=== PATIENT | male | born 2000 | race Caucasian/White ===

== ENCOUNTER 2022-05-16 15:17 | Outpatient (REF) | payer SELFPAY ==
--- NOTE | ~2022-05-16 | XR_ITS ---
EXAMINATION: XR MANDIBLE CLINICAL INFORMATION: Sony pain COMPARISON: None TECHNIQUE: 5 views submitted FINDINGS: Fracture of the angle of the mandible on the right. There is some lucency around the molar which the fracture line extends into. This could be a result of the fracture. Underlying abnormality cannot be excluded. XR/XR mandible <4V IMPRESSION: Fracture of the angle of the mandible on the right.
== END 2022-05-16 15:18 | disposition home or self-care (01) ==
LOC: HO.HMGCX 15:17
DX: R68.84 Jaw pain (principal)
CPT/HCPCS: 70100

== ENCOUNTER 2024-08-29 14:58 | Inpatient (IN) | payer BC, MEDICAID, SELFPAY ==
[2024-08-29 15:00] VITALS: BP 115/80; PULSE 112; RESP 16; TEMP 36; O2SAT 99; BMI 29.5
--- NOTE | 2024-08-29 15:00 | ED.PSYCH ---
HPI - Psych General Chief Complaint: Psychiatric Symptoms Stated Complaint: SI Time Seen by Provider: 08/29/24 16:21 Source: patient Mode of arrival: ambulatory Limitations: no limitations History of Present Illness ED Provider: Mode Hart HPI Narrative: 23 yold male with past medical history of depression presents to ED for suicide ideation. Patient is time patient making thoughts about hurting himself. Patient had a DUI last night and was intentionally spitting. Patient has no plan. Patient states he is suicidal due to of sister couple years ago. Patient has no plan Related Data Home Medications ?Medication ?Instructions ?Recorded ?Confirmed No Known Home Meds 08/29/24 08/29/24 Allergies Allergy/AdvReac Type Severity Reaction Status Date / Time No Known Allergies Allergy Verified 08/29/24 15:12 Review of Systems Review of Systems: Suicide ideation Yes all other systems are reviewed and are negative [facility] Past Medical History Medical History Mandibular pain Social History Social History Alcohol intake: current Alcohol intake frequency: 3 or more drinks per day Patient Tobacco Use Status: Current everyday Tobacco user Smoked in Last 30 Days: Yes Use of substances other than those prescribed or required for medical reasons: No Advance Directives: No Advance Directives Information Provided: No Physical Exam Vital Signs: Vital Signs: Last Vital Signs Temp 96.8 F 08/29/24 15:00 Pulse 112 H 08/29/24 15:00 Resp 16 08/29/24 15:00 BP 115/80 08/29/24 15:00 Pulse Ox 99 08/29/24 15:00 O2 Del Method Room Air 08/29/24 15:00 BMI result Body Mass Index 29.5 Const: General: cooperative, healthy appearing, comfortable, no acute distress, well developed, alert, awake and Physically active Orientation/consciousness: patient oriented x3 HEENT: Head: Yes normal to inspection, Yes No palpable skull fracture present, Yes normocephalic and Yes atraumatic Eyes: General: appearance normal, both eyes and all related structures Neck: Neck: Yes normal visual inspection, Yes full ROM, Yes no lymphadenopathy, Yes no meningeal signs, Yes trachea midline, Yes supple, No anterior neck swelling and No tender Chest: Chest palpation & inspection: normal inspection of the chest and normal palpation of entire chest wall Resp: Effort & Inspection: normal respiratory effort and able to speak in complete sentences Auscultation: clear to auscultation bilaterally Cardio: Jugular venous distension: no JVD Heart sounds: S1 normal heart sound present and S2 normal heart sound present GI: Inspection: Yes normal to inspection Palpation (GI): Soft to palpation, not firm, nontender, no guarding and not rigid : General: No CVA tenderness and Yes no CVA tenderness Back/Spine/Pelvis: Back: no CVA tenderness, No CVA tenderness and No back tenderness Skin: General skin exam: no rashes or lesions noted, elasticity normal and turgor normal Neuro: General: patient oriented x3, gait normal, tone normal, moves all extremities, Normal light touch and pain sensation, no meningeal signs, no focal motor deficits, CN's II-XI intact bilaterally and normal sensation to monofilament Extrem: Other: Bilateral lower extremity tattoos negative for signs of infection. Negative for erythema, ecchymosis, crepitus, deformity, pus discharge, foul odor, warmth, or tenderness. All extremities normal. Motor/neuro/vascular exam intact. General: Yes normal to inspection, Yes full ROM and Yes capillary refill normal Psych: Appearance: grossly normal, well kempt and not disheveled Course Course Course Narrative: This is a rapid medical exam. Deferred additional HPI, ROS, PE to primary provider. 23 yo male with no known medical history here with complaints of suicidal thoughts, alcohol use. No HI, no drug use. Got an OUI last evening per family member. Patient states going fast for a reason. Will obtain labs, GARZA, CARE team consult. ILANA Delgado APRN Medical Decision Making Medical Decision Making MDM Narrative: 23-year-old male presents to ED for suicidal ideation with no plan due to depression over sister's who years ago. Will do labs care team consult 12:09am; Care team internal control consultant Court states patient will be admitted to Psych for depression. Patient placed on section 12. Patient lower extremity tattoos have no signs of infection. Negative for erythema, pus discharge foul odor, tenderness, or deformity. Once again bilateral lower extremity tattoos negative for signs of cellulitis, osteomyelitis, necrotizing fasciitis, DVT, compartment syndrome, or arterial occlusion. UA shows white blood cell count. May indicate UTI was started on Keflex. Will Start UTI Differential Diagnosis Differential Diagnoses: The differential diagnosis associated with the presentation includes (SI, depression) Admission/Observation Consideration of admission/observation: Escalation of care including admission/observation considered Consult Healthcare Provider Management of the patient was discussed with: Optometric Coordinator (Care team consulted) Lab Data MDM Lab Attestation statement: I reviewed the patient's lab results. 08/29/24 15:48 08/29/24 15:48 Labs: Lab Results 08/29/24 08/29/24 Range/Units 15:29 15:48 WBC 9.4 (4.8-10.8) X10*3/uL RBC 5.43 (4.60-5.80) X10*6/uL Hgb 17.8 (14.0-18.0) g/dl Hct 48.0 (42.0-52.0) % MCV 88.4 (80.0-98.0) fL MCH 32.8 (27.0-33.0) pg MCHC 37.1 H (31.0-36.0) g/dl RDW 12.2 (11.0-16.0) % Plt Count 259 (160-400) X10*3/uL MPV 9.6 (9.4-12.4) fL Immature Gran % (Auto) 0.3 (0.0-0.4) % Neut % (Auto) 70.5 (45-73) % Lymph % (Auto) 21.2 (20-40) % [place] % (Auto) 6.3 (2-11) % Eos % (Auto) 1.2 (0-4) % Baso % (Auto) 0.5 (0-2) % Lymph # (Auto) 2.0 (1.2-4.9) X10*3/uL [place] # (Auto) 0.6 (0.1-1.2) X10*3/uL Eos # (Auto) 0.1 (0.0-0.4) X10*3/uL Baso # (Auto) 0.1 (0.0-0.2) X10*3/uL Abs Immat Gran (auto) 0.03 (0.00-0.03) X10*3/uL Absolute Neuts (auto) 6.7 (2.0-8.3) x10*3/uL Absolute Nucleated RBC 0.000 (0.0-0.012) X10*3/uL Nucleated RBC % (auto) 0.0 (0.0-0.2) /100WBC Sodium 142 (135-145) mmol/L Potassium 4.1 (3.3-5.1) mmol/L Chloride 105 (96-108) mmol/L Carbon Dioxide 27 (22-29) mmol/L Anion Gap 14 (12-20) BUN 6 L (9-16) mg/dL Creatinine 0.89 (0.5-1.4) mg/dL Estim Creat Clear Calc 163.4 Estimated GFR > 60 Random Glucose 91 (60-115) mg/dL Calcium 8.9 (8.4-10.2) mg/dL Total Bilirubin 0.6 (0.0-1.0) mg/dL Direct Bilirubin 0.3 (0.0-0.5) mg/dL AST 93 H (5-37) U/L ALT 165 H (0-40) U/L Alkaline Phosphatase 76 (39-117) U/L Total Protein 7.3 (6.5-8.0) g/dL Albumin 4.7 (3.5-5.0) g/dL Urine Color Yellow Urine Appearance Clear Urine pH 6.0 (5.0-9.0) Ur Specific [place] 1.015 (1.005-1.025) Urine Protein Negative (Neg-Trace) mg/dL Urine Glucose (UA) Negative (Negative) mg/dL Urine Ketones Negative (Negative) mg/dL Urine Blood Negative (Negative) Urine Nitrite Negative (Negative) Ur Leukocyte Esterase Trace H (Negative) Urine RBC 0-2 (0-2) /HPF Urine WBC 11-20 H (0-5) /HPF Ur Squamous Epith Cells 0-2 (0-2) /HPF Urine Bacteria None Seen (None Seen) Hyaline Casts 0-2 (0-2) /LPF Salicylates < 5.0 L (15-30) mg/dL Urine Opiates Screen Not Detected (Not Detect) Ur Buprenorphine Scrn Not Detected (Not Detect) ng/mL Ur Oxycodone Screen Not Detected (Not Detect) ng/mL Urine Methadone Screen Not Detected (Not Detect) ng/mL Urine Fentanyl Screen Not Detected (Not Detect) Acetaminophen < 3 (<30) mcg/mL Ur Barbiturates Screen Not Detected (Not Detect) Ur Phencyclidine Scrn Not Detected (Not Detect) Ur Amphetamines Screen Not Detected (Not Detect) U Benzodiazepines Scrn Not Detected (Not Detect) Urine Cocaine Screen POSITIVE H (Not Detect) U Marijuana (THC) Screen POSITIVE H (Not Detect) Ethyl Alcohol 92 mg/dL Independent Historian Clinical information obtained from an independent historian. History obtained from or confirmed by: Other (Patient) External Record Review External record reviewed: Other (Prior visits) Discharge Plan Discharge Clinical Impression: Depression Patient Disposition: Admitted As Inpatient Interventions: Bryan-Suicide Risk Severity Scale Last Done: 08/29/24 15:46 Print Language: Tajik
[2024-08-29 15:48] LABS: Appearance Urine Clear; Color Urine Yellow; Glucose Urine UA Negative (Negative); Leukocyte Esterase Urine Trace (Negative); Nitrite Urine Negative (Negative); Specific Gravity - Urine 1.015 (1.005-1.025); UMIC TRIGGER UA YES; Urine Blood Negative (Negative); Urine Ketones Negative (Negative); Urine Protein Negative (Neg-Trace)
[2024-08-29 15:51] LABS: Amphetamine Screen Urine Not Detected (Not Detect); Barbiturates, Urine Not Detected (Not Detect); Benzodiazepines Screen Urine Not Detected (Not Detect); Buprenorphine Scr Not Detected (Not Detect); Cannabinoid Screen Urine POSITIVE (Not Detect); Cocaine Screen Urine POSITIVE (Not Detect); Fentanyl, urine Not Detected (Not Detect); Methadone Screen, Urine Not Detected (Not Detect); Opiate Screen Urine Not Detected (Not Detect); Oxycodone Screen Urine Not Detected (Not Detect); Phencyclidine Screen Urine Not Detected (Not Detect)
[2024-08-29 15:52] LABS: MANUAL DIFF FLAG NO
[2024-08-29 15:53] LABS: Bacteria Urine None Seen (None Seen); Hyaline Casts Urine 0-2 /LPF (0-2); RBC Urine 0-2 /HPF (0-2); Squamous Epithelial Cell Urine 0-2 /HPF (0-2)
[2024-08-29 16:15] LABS: Alanine Aminotransferase 165 U/L (0-40); Albumin Level 4.7 g/dL (3.5-5.0); Alkaline Phosphatase 76 U/L (39-117); Anion Gap 14 (12-20); Aspartate Amino Transferase 93 U/L (5-37); Bilirubin Direct 0.3 mg/dL (0.0-0.5); Bilirubin Total 0.6 mg/dL (0.0-1.0); Blood Urea Nitrogen 6 mg/dL (9-16); Calcium 8.9 mg/dL (8.4-10.2); Carbon Dioxide 27 mmol/L (22-29); Chloride 105 mmol/L (96-108); Creatinine Clr Calc Pharmacy 163.4; Estimated Glomerular Filt Rate > 60; Ethanol 92 mg/dL; Glucose Random 91 mg/dL (60-115); Potassium 4.1 mmol/L (3.3-5.1); Sodium 142 mmol/L (135-145); Total Protein 7.3 g/dL (6.5-8.0)
--- NOTE | 2024-08-29 16:19 | PC.NURSE ---
pt arrived ambulatory to [facility] ED and self presented with family for SI no plan. pt reports ETOH use multiple times a week and each time he does drink he drinks more than 6 beverages. pt has no hx of alcohol withdrawal. pt denies taking home medications and has no history of making an attempt on his life. he is pleasant, A&O x4. skin intact, PWD.
[2024-08-29 16:22] LABS: Acetaminophen LAB < 3 mcg/mL (<30); Salicylate < 5.0 mg/dL (15-30)
[2024-08-29 16:46] LABS: Basophils Absolute Auto 0.1 X10*3/uL (0.0-0.2); Basophils Percent Auto 0.5 % (0-2); Eosinophils Absolute Auto 0.1 X10*3/uL (0.0-0.4); Eosinophils Percent Auto 1.2 % (0-4); Hemoglobin 17.8 g/dl (14.0-18.0); Imm Gran Abs Auto 0.03 X10*3/uL (0.00-0.03); Imm Gran Pct Auto 0.3 % (0.0-0.4); Lymphocytes Percent Auto 21.2 % (20-40); Mean Corpuscular HGB Conc 37.1 g/dl (31.0-36.0); Mean Corpuscular Hemoglobin 32.8 pg (27.0-33.0); Mean Corpuscular Volume 88.4 fL (80.0-98.0); Mean Platelet Volume 9.6 fL (9.4-12.4); Monocytes Absolute Auto 0.6 X10*3/uL (0.1-1.2); Monocytes Percent Auto 6.3 % (2-11); Neutrophils Absolute Auto 6.7 x10*3/uL (2.0-8.3); Neutrophils Percent Auto 70.5 % (45-73); Platelet Count 259 X10*3/uL (160-400); Red Blood Count 5.43 X10*6/uL (4.60-5.80); Red Cell Distribution Width 12.2 % (11.0-16.0); White Blood Count 9.4 X10*3/uL (4.8-10.8)
--- NOTE | 2024-08-29 19:22 | PC.NURSE ---
patient appears to remain at rest at present respirations are even and unlabored patient appears in no distress.
--- NOTE | 2024-08-30 07:46 | ECG_ITS ---
Test Reason : med clearence Blood Pressure : / mmHG Vent. Rate : 050 BPM Atrial Rate : 050 BPM P-R Int : 142 ms QRS Dur : 094 ms QT Int : 426 ms P-R-T Axes : 048 057 053 degrees QTc Int : 388 ms Sinus bradycardia with marked sinus arrhythmia Otherwise normal ECG No previous ECGs available Referred By: Ryne Nugent Electronically Signed By:SUNNY DE SOUZA
[2024-08-30] MEDS: cephALEXin 500 MG CAPSULE PO ×2 (11:07→22:48)
--- NOTE | 2024-08-30 11:34 | PC.NURSE ---
patient medicated per DEC, has been sleeping/resting quietly in room through out morning, patient CIWA 4. resp even and unlabored no signs of acute distress
[2024-08-30 11:38] VITALS: BP 119/73; PULSE 68; RESP 18; TEMP 37; O2SAT 95
--- NOTE | 2024-08-30 12:21 | PC.NURSE ---
patient mother at bedside visiting
--- NOTE | 2024-08-30 13:28 | PHA.MEDREC ---
Addendum entered by Christopher Sanabria 08/30/24 13:56: reviewed Original Note: Pharmacy Consult ? Medication Reconciliation Pharmacy reviewed med rec done by nursing. Spoke with patient and he confirmed he is not taking any medications at this time.
[2024-08-30 15:00] VITALS: BMI 29.2
[2024-08-30 15:15] VITALS: BP 124/74; PULSE 68; RESP 16; TEMP 36.6; O2SAT 99
--- NOTE | 2024-08-30 18:14 | PC.NURSE ---
Addendum entered by Radhika Toscano RN 08/30/24 18:31: During intake, he denies urges to harm self or others and any visual or perceptual disturbances. He also denies any physical health problems. Original Note: Sony arrived on M5 via wheelchair from [facility] [place] pod. He was cooperative with skin/safety check and skin check is remarkable only for several self done tattoos in various stages of healing. He is oriented x4, appears stated age and is pleasant to engage with. He presented with his mom friday night as I was driving way too fast way too drunk and I got arrested for DUI. My parents have been really concerned with my drinking and my behavior, so this was the first stop after the police . Donis closest sister (he is one of 11 kids) of an overdose not too long ago and he has been having a hard time since. He lives above his parents in an apartment of his own. His girlfriend told him friday that she never loved him and that was just too much . He initially endorsed drinking a couple of beers a few times a week , he admitted that he drank much too much friday and said he did use cocaine as well. His tox screen was positive for marijuana, cocaine and BAL was 92. This nurse talked about the seriousness of alcohol withdrawal for ones health. He changed his story when he met with Dr Bxo admitted to taking much more alcohol of late. He is tremulous but endorses anxiety over being here. Simiwa's ordered. He signed a CV, he is on 15 minute safety checks.
[2024-08-30 20:00] VITALS: BP 131/63; PULSE 68; TEMP 36.6; O2SAT 98
[2024-08-30] MEDS: Flu Vacc TS2024-25(6mos up)/PF 0.5 ML SYRINGE IM (22:49)
[2024-08-31 00:30] VITALS: BP 134/72; PULSE 64; TEMP 36.8
[2024-08-31 04:30] VITALS: BP 132/68; PULSE 58; TEMP 36.9
[2024-08-31 08:00] VITALS: BP 142/62; PULSE 63; RESP 15; TEMP 36.9; O2SAT 94
[2024-08-31] MEDS: Folic Acid 1 MG TABLET PO (08:57)
[2024-08-31] MEDS: Multivitamin TABLET 1 TAB PO (08:57)
[2024-08-31] MEDS: Thiamine HCL 100 MG TABLET PO (08:57)
[2024-08-31] MEDS: cephALEXin 500 MG CAPSULE PO ×2 (08:57→21:23)
[2024-08-31 08:59] LABS: Estimated Average Glucose 91 mg/dL; Hemoglobin A1C 130.6619 umol/L; Hemoglobin A1c % 4.8 % (<6.0); Total Hemoglobin (HGBA1C) 4598.8384 umol/L
[2024-08-31 09:28] LABS: Alanine Aminotransferase 90 U/L (0-40); Albumin Level 4.5 g/dL (3.5-5.0); Aspartate Amino Transferase 26 U/L (5-37); Bilirubin Direct 0.5 mg/dL (0.0-0.5); Bilirubin Total 1.3 mg/dL (0.0-1.0); Cholesterol 140 mg/dL (<200); HDL Cholesterol 42 mg/dL (>40); LDL Cholesterol Calculated 78 mg/dL (<100); Total Protein 7.2 g/dL (6.5-8.0); Triglycerides 101 mg/dL (<150)
--- NOTE | 2024-08-31 09:37 | P.HPPS_ITS ---
HPI Date of Service: 08/31/24 Chief Complaint: depression/SI Sources of Information: patient interviewed, chart reviewed and crisis/core team assessment reviewed HPI Subjective Notes: Kennedy Warning and Conditional Voluntary Healthcare Proxy: No Guardianship: No Medical Problems Affecting Mental Status: No Narrative: 23 yo male to ER with family. Pt reported SI in response to OUI. States he was traveling in excess of 70 mph, intoxicated. Reports since his sister in 2020 drinking to cope with grief surrounding her via OD. Both were close, spent much time together and he has not recovered since this loss. Past Psychiatric History: IP: Denies OP: Denies Medical Evaluation Reviewed: Yes [facility] Medical History (Updated 08/31/24 @ 09:54 by Kristyn Morocho, ZOHAIB) Cocaine use disorder Cannabis use disorder Alcohol use disorder Mandibular pain Family History: Substance abuse Social History: Born and raised in [place] by parents Eleven siblings No children currently Substance History: alcohol, cannabis, nicotine Toxicology: BAL 92, Postive THC, Cocaine Trauma History: Loss of sister to OD 2020 Diagnostics Vital Signs (24Hr): Vital Signs - 24 hr 08/30/24 11:38 08/30/24 15:15 08/30/24 20:00 Temperature 98.6 F 98 F 97.9 F Pulse Rate 68 68 68 Respiratory Rate 18 16 Blood Pressure 119/73 124/74 131/63 Pulse Oximetry 95 99 98 Oxygen Delivery Method Room Air Room Air Room Air 08/31/24 00:30 08/31/24 04:30 Temperature 98.2 F 98.4 F Pulse Rate 64 58 Respiratory Rate Blood Pressure 134/72 132/68 Pulse Oximetry Oxygen Delivery Method BMI result Body Mass Index 29.2 Labs 08/29/24 15:48 08/29/24 15:48 Labs: Laboratory Results - last 48 hr 08/29/24 08/29/24 08/31/24 15:29 15:48 08:33 WBC 9.4 RBC 5.43 Hgb 17.8 Hct 48.0 MCV 88.4 MCH 32.8 MCHC 37.1 H RDW 12.2 Plt Count 259 MPV 9.6 Immature Gran % (Auto) 0.3 Neut % (Auto) 70.5 Lymph % (Auto) 21.2 [place] % (Auto) 6.3 Eos % (Auto) 1.2 Baso % (Auto) 0.5 Lymph # (Auto) 2.0 [place] # (Auto) 0.6 Eos # (Auto) 0.1 Baso # (Auto) 0.1 Abs Immat Gran (auto) 0.03 Absolute Neuts (auto) 6.7 Absolute Nucleated RBC 0.000 Nucleated RBC % (auto) 0.0 Sodium 142 Potassium 4.1 Chloride 105 Carbon Dioxide 27 Anion Gap 14 BUN 6 L Creatinine 0.89 Estim Creat Clear Calc 163.4 Estimated GFR > 60 Random Glucose 91 Estimat Average Glucose 91 Hemoglobin A1c % 4.8 Calcium 8.9 Total Bilirubin 0.6 1.3 H Direct Bilirubin 0.3 0.5 AST 93 H 26 ALT 165 H 90 H Alkaline Phosphatase 76 Total Protein 7.3 7.2 Albumin 4.7 4.5 Triglycerides 101 Cholesterol 140 LDL Cholesterol, Calc 78 HDL Cholesterol 42 Urine Color Yellow Urine Appearance Clear Urine pH 6.0 Ur Specific [place] 1.015 Urine Protein Negative Urine Glucose (UA) Negative Urine Ketones Negative Urine Blood Negative Urine Nitrite Negative Ur Leukocyte Esterase Trace H Urine RBC 0-2 Urine WBC 11-20 H Ur Squamous Epith Cells 0-2 Urine Bacteria None Seen Hyaline Casts 0-2 Salicylates < 5.0 L Urine Opiates Screen Not Detected Ur Buprenorphine Scrn Not Detected Ur Oxycodone Screen Not Detected Urine Methadone Screen Not Detected Urine Fentanyl Screen Not Detected Acetaminophen < 3 Ur Barbiturates Screen Not Detected Ur Phencyclidine Scrn Not Detected Ur Amphetamines Screen Not Detected U Benzodiazepines Scrn Not Detected Urine Cocaine Screen POSITIVE H U Marijuana (THC) Screen POSITIVE H Ethyl Alcohol 92 Meds/Allergies Meds Home Medications ?Medication ?Instructions ?Recorded ?Confirmed ?Type No Known Home Meds 08/29/24 08/29/24 History Allergies Allergies Allergy/AdvReac Type Severity Reaction Status Date / Time No Known Allergies Allergy Verified 08/29/24 15:12 Mental Status Exam Mental Status Exam Patient Appearance: Fatigued Patient Orientation: Person, Place, Time and Situation Level of Consciousness: Alert Patient Behavior: Fatigued Mood Description: Depressed Affect Description: Flat Ability to Follow Directions: Fair Speech Pattern: Spontaneous Speech Memory Description: Episodic Impaired Thought Content: positive for Suicidal Ideation Depressive Symptoms: Thoughts of /Suicide Judgement: Poor Assessment & Plan Assessment & Plan (1) Depression: Status: Acute Code(s): F32.A - Depression, unspecified (2) Alcohol use disorder: Status: Acute Code(s): F10.90 - Alcohol use, unspecified, uncomplicated (3) Cannabis use disorder: Status: Acute Code(s): F12.90 - Cannabis use, unspecified, uncomplicated (4) Cocaine use disorder: Status: Acute Code(s): F14.10 - Cocaine abuse, uncomplicated Plan Depression, PTSD-loss of sister, 2020, Alcohol, Cannabis, Cocaine use disorders. Plan: Admit, CV, 15 minute checks Collateral contacts Encourage full milieu Medical diagnostics as needed. Medications evaluation Discharge planning. Patient educated on: therapeutic strategies Reason for continued inpatient stay Substantial Risk for: rapid decompensation Statement Statement: I have reviewed the history and physical and performed a pertinent examination on my patient. No changes have occurred unless specified. If the History and Physical was not performed prior to admission, the Hospitalist's service will be consulted for completing the admission physical. Time Spent With Patient Time: Total time managing care of this patient today ____ minutes.
[2024-08-31 10:08] LABS: TSH reflex Free T4 1.52 uIU/mL (0.32-4.0)
[2024-08-31 11:47] LABS: Alkaline Phosphatase 69 U/L (39-117)
[2024-08-31 13:32] LABS: HBc Num1 0.08 S/CO (0.00-0.79); HBsAGNum1 0.51 S/CO (0.00-0.99); Hepatitis B Core Antibody Nonreactive (Nonreactive); Hepatitis B Surface Antigen Negative (Negative); ~HepC Num1 0.12 S/CO (0.00-0.79); ~Hepatitis C Antibody Nonreactive (Nonreactive)
--- NOTE | 2024-08-31 13:45 | PC.NURSE ---
PT SIGNED A 3 DAY ON 08/31 THAT WILL BE UP ON 09/06.
[2024-08-31 14:08] LABS: ~Hepatitis B Surface Antibody NONREACTIVE (Nonreactive)
[2024-08-31 19:38] VITALS: BP 121/67; PULSE 71; RESP 16; TEMP 36.9; O2SAT 99
[2024-08-31] MEDS: lamoTRIgine 25 MG TABLET PO (21:23)
[2024-09-01 08:00] VITALS: BP 129/55; PULSE 62; TEMP 36.8; O2SAT 96
[2024-09-01] MEDS: cephALEXin 500 MG CAPSULE PO ×2 (09:01→20:33)
[2024-09-01] MEDS: Multivitamin TABLET 1 TAB PO (09:01)
[2024-09-01] MEDS: Folic Acid 1 MG TABLET PO (09:01)
[2024-09-01] MEDS: Thiamine HCL 100 MG TABLET PO (09:01)
--- NOTE | 2024-09-01 15:11 | MHC.RECOVRN ---
Attempted to meet with pt after pt scored positive on the AUDIT-C. Pt with visitor. Will meet with pt on Friday, 09/03.
--- NOTE | 2024-09-01 18:08 | P.PNPSI_ITS ---
Subjective Subjective Date of Service: 09/01/24 Reason For Visit: depression/SI Subjective Notes: Conditional Voluntary and 3 Day Healthcare Proxy: No Guardianship: No Medical Problems Affecting Mental Status: No Interim History: Tolerating Lamictal. Discussed issues with depression, anxiety. Reports depressive sx for 4 years since the loss of sister- I attach myself to people, and when I lose them, it is hard. Discussed codependence and using substances as medicine. Describes secluding himself to avoid people and issues. Willing to trial an antidepressant in addition to lamictal. Looking at rehabs as well. Medication Compliance: Yes Side effects from medications: No Attending Groups: Intermittent Review of Systems Acute medical concerns: No Review of Systems Review of Systems Yes all other systems are reviewed and are negative Mental Status Exam Mental Status Exam Patient Appearance: Appropriate Patient Orientation: Person, Place, Time and Situation Level of Consciousness: Alert Patient Behavior: Appropriate, Talkative, Cooperative and Good Eye Contact Mood Description: Depressed and Anxious Affect Description: Flat Patient Cognition Impaired: No Ability to Follow Directions: Good Speech Pattern: Spontaneous Speech Memory Description: Episodic Impaired Hallucinations: None Delusions: Not Present Perceptual Disturbances: Depersonalization and Derealization Thought Content: positive for Perseveration and positive for Suicidal Ideation Depressive Symptoms: Increased Anxiety, Isolating-Friends/Family, Thoughts of /Suicide and Low Self Esteem Judgement: Fair Diagnostics Vital Signs (24Hr): Vital Signs - 24 hr 08/31/24 19:38 09/01/24 08:00 Temperature 98.4 F 98.2 F Pulse Rate 71 62 Respiratory Rate 16 Blood Pressure 121/67 129/55 L Pulse Oximetry 99 96 Oxygen Delivery Method Room Air Room Air BMI result Body Mass Index 29.2 Labs 08/29/24 15:48 08/29/24 15:48 Labs: Laboratory Results - last 48 hr 08/31/24 08:33 Estimat Average Glucose 91 Hemoglobin A1c % 4.8 Total Bilirubin 1.3 H Direct Bilirubin 0.5 AST 26 ALT 90 H Alkaline Phosphatase 69 Total Protein 7.2 Albumin 4.5 Triglycerides 101 Cholesterol 140 LDL Cholesterol, Calc 78 HDL Cholesterol 42 TSH 1.52 Hep Bs Antigen Negative Hep Bs Antibody NONREACTIVE Hep B Core Total Ab Nonreactive Hepatitis C Ab (EIA) Nonreactive Medications Medications Current Medications Acetaminophen (Acetaminophen 325 Mg Tablet) 650 mg PO Q6H PRN PRN Reason: Headache/Pain Mild Scale (1-3) Al Hydroxide/Mg Hydroxide (Magnesium Hydrox/Alum Hydrox 30 Ml Oral.Susp) 30 ml PO Q6H PRN PRN Reason: Heartburn/Nausea Cephalexin HCl (Cephalexin 500 Mg Capsule) 500 mg PO BID [facility] Last Admin: 09/01/24 09:01 Dose: 500 mg Folic Acid (Folic Acid 1 Mg Tablet) 1 mg PO DAILY [facility] Last Admin: 09/01/24 09:01 Dose: 1 mg Hydroxyzine HCl (Hydroxyzine Hcl 25 Mg Tablet) 25 mg PO Q6H PRN PRN Reason: Anxiety Lamotrigine (Lamotrigine 25 Mg Tablet) 25 mg PO BEDTIME [facility] Last Admin: 08/31/24 21:23 Dose: 25 mg Magnesium Hydroxide (Milk Of Magnesia 30 Ml Oral.Susp) 30 ml PO DAILY PRN PRN Reason: Constipation Multivitamins/Vitamin C (Multivitamin Tablet) 1 tab PO DAILY [facility] Last Admin: 09/01/24 09:01 Dose: 1 tab Nicotine (Nicotine 21 Mg Patch.Td24) 21 mg TRANSDERMA DAILY PRN PRN Reason: smoking cessation Nicotine Polacrilex (Nicotine Polacrilex 2 Mg Gum) 4 mg BUCCAL Q2H PRN PRN Reason: Nicotine Cravings Olanzapine (Olanzapine 5 Mg Tablet) 5 mg PO TID PRN PRN Reason: agitation Thiamine HCl (Thiamine Hcl 100 Mg Tablet) 100 mg PO DAILY [facility] Last Admin: 09/01/24 09:01 Dose: 100 mg Trazodone HCl (Trazodone Hcl 50 Mg Tablet) 50 mg PO BEDTIME MRX1 PRN PRN Reason: Insomnia Allergies Allergies Allergy/AdvReac Type Severity Reaction Status Date / Time No Known Allergies Allergy Verified 08/29/24 15:12 Assessment & Plan Assessment & Plan (1) Depression: Status: Acute Code(s): F32.A - Depression, unspecified (2) Alcohol use disorder: Status: Acute Code(s): F10.90 - Alcohol use, unspecified, uncomplicated (3) Cannabis use disorder: Status: Acute Code(s): F12.90 - Cannabis use, unspecified, uncomplicated (4) Cocaine use disorder: Status: Acute Code(s): F14.10 - Cocaine abuse, uncomplicated Plan Depression, PTSD-loss of sister, 2020, Alcohol, Cannabis, Cocaine use disorders. Plan: Admit, CV, 15 minute checks Collateral contacts Encourage full milieu Medical diagnostics as needed. Medications evaluation Discharge planning. 09/01/24: Lamictal 25 mg HS, started 08/31. Remeron 7.5 mg HS Reason for continued inpatient stay Substantial Risk for: rapid decompensation Time Spent With Patient Time: Total time managing care of this patient today ____ minutes.
[2024-09-01] MEDS: Nicotine 21 MG PATCH.TD24 TRANSDERMA (18:31)
[2024-09-01] MEDS: Nicotine Polacrilex 2 MG GUM 4 MG BUCCAL (18:31)
[2024-09-01] MEDS: hydrOXYzine HCL 25 MG TABLET PO (18:34)
[2024-09-01 19:54] VITALS: BP 109/68; PULSE 80; RESP 16; TEMP 37.1; O2SAT 97
[2024-09-01] MEDS: Mirtazapine 7.5 MG TABLET PO (20:33)
[2024-09-01] MEDS: lamoTRIgine 25 MG TABLET PO (20:33)
[2024-09-02 09:05] VITALS: BP 111/59; PULSE 74; RESP 16; TEMP 36.8; O2SAT 98
--- NOTE | 2024-09-02 09:40 | P.PNPSI_ITS ---
Subjective Subjective Date of Service: 09/02/24 Reason For Visit: depression/SI Interim History: Tolerating Lamictal. Discussed issues with depression, anxiety. Reports depressive sx for 4 years since the loss of sister- I attach myself to people, and when I lose them, it is hard. Discussed codependence and using substances as medicine. Describes secluding himself to avoid people and issues. Willing to trial an antidepressant in addition to lamictal. Looking at rehabs as well. Review of Systems Review of Systems Several self tattos Yes all other systems are reviewed and are negative Mental Status Exam Mental Status Exam Patient Appearance: Appropriate Patient Orientation: Person, Place, Time and Situation Level of Consciousness: Alert Patient Behavior: Appropriate, Talkative, Cooperative and Good Eye Contact Mood Description: Depressed and Anxious Affect Description: Flat Patient Cognition Impaired: No Ability to Follow Directions: Good Speech Pattern: Spontaneous Speech Memory Description: Episodic Impaired Diagnostics Vital Signs (24Hr): Vital Signs - 24 hr 09/01/24 19:54 09/02/24 09:05 Temperature 98.8 F 98.3 F Pulse Rate 80 74 Respiratory Rate 16 16 Blood Pressure 109/68 111/59 L Pulse Oximetry 97 98 Oxygen Delivery Method Room Air Room Air BMI result Body Mass Index 29.2 Labs 08/29/24 15:48 08/29/24 15:48 Labs: Laboratory Results - last 48 hr 08/31/24 08:33 Alkaline Phosphatase 69 TSH 1.52 Hep Bs Antigen Negative Hep Bs Antibody NONREACTIVE Hep B Core Total Ab Nonreactive Hepatitis C Ab (EIA) Nonreactive Medications Medications Current Medications Acetaminophen (Acetaminophen 325 Mg Tablet) 650 mg PO Q6H PRN PRN Reason: Headache/Pain Mild Scale (1-3) Al Hydroxide/Mg Hydroxide (Magnesium Hydrox/Alum Hydrox 30 Ml Oral.Susp) 30 ml PO Q6H PRN PRN Reason: Heartburn/Nausea Cephalexin HCl (Cephalexin 500 Mg Capsule) 500 mg PO BID [facility] Last Admin: 09/01/24 20:33 Dose: 500 mg Folic Acid (Folic Acid 1 Mg Tablet) 1 mg PO DAILY [facility] Last Admin: 09/01/24 09:01 Dose: 1 mg Hydroxyzine HCl (Hydroxyzine Hcl 25 Mg Tablet) 25 mg PO Q6H PRN PRN Reason: Anxiety Last Admin: 09/01/24 18:34 Dose: 25 mg Lamotrigine (Lamotrigine 25 Mg Tablet) 25 mg PO BEDTIME [facility] Last Admin: 09/01/24 20:33 Dose: 25 mg Magnesium Hydroxide (Milk Of Magnesia 30 Ml Oral.Susp) 30 ml PO DAILY PRN PRN Reason: Constipation Mirtazapine (Mirtazapine 7.5 Mg Tablet) 7.5 mg PO BEDTIME [facility] Last Admin: 09/01/24 20:33 Dose: 7.5 mg Multivitamins/Vitamin C (Multivitamin Tablet) 1 tab PO DAILY [facility] Last Admin: 09/01/24 09:01 Dose: 1 tab Nicotine (Nicotine 21 Mg Patch.Td24) 21 mg TRANSDERMA DAILY PRN PRN Reason: smoking cessation Last Admin: 09/01/24 18:31 Dose: 21 mg Nicotine Polacrilex (Nicotine Polacrilex 2 Mg Gum) 4 mg BUCCAL Q2H PRN PRN Reason: Nicotine Cravings Last Admin: 09/01/24 18:31 Dose: 4 mg Olanzapine (Olanzapine 5 Mg Tablet) 5 mg PO TID PRN PRN Reason: agitation Thiamine HCl (Thiamine Hcl 100 Mg Tablet) 100 mg PO DAILY [facility] Last Admin: 09/01/24 09:01 Dose: 100 mg Trazodone HCl (Trazodone Hcl 50 Mg Tablet) 50 mg PO BEDTIME MRX1 PRN PRN Reason: Insomnia Allergies Allergies Allergy/AdvReac Type Severity Reaction Status Date / Time No Known Allergies Allergy Verified 08/29/24 15:12 Assessment & Plan Assessment & Plan (1) Depression: Status: Acute Code(s): F32.A - Depression, unspecified (2) Alcohol use disorder: Status: Acute Code(s): F10.90 - Alcohol use, unspecified, uncomplicated (3) Cannabis use disorder: Status: Acute Code(s): F12.90 - Cannabis use, unspecified, uncomplicated (4) Cocaine use disorder: Status: Acute Code(s): F14.10 - Cocaine abuse, uncomplicated Plan Depression, PTSD-loss of sister, 2020, Alcohol, Cannabis, Cocaine use disorders. Plan: Admit, CV, 15 minute checks Collateral contacts Encourage full milieu Medical diagnostics as needed. Medications evaluation Discharge planning. 09/01/24: Lamictal 25 mg HS, started 08/31. Remeron 7.5 mg HS Time Spent With Patient Time: Total time managing care of this patient today ____ minutes.
[2024-09-02] MEDS: Multivitamin TABLET 1 TAB PO (10:37)
[2024-09-02] MEDS: cephALEXin 500 MG CAPSULE PO ×2 (10:37→20:23)
[2024-09-02] MEDS: Folic Acid 1 MG TABLET PO (10:37)
[2024-09-02] MEDS: Thiamine HCL 100 MG TABLET PO (10:37)
--- NOTE | 2024-09-02 18:16 | P.DS_ITS ---
DS: Providers Provider Date of Service: 09/02/24 Date of admission: 08/30/24 14:01 Date of discharge: 09/02/24 Primary care physician: Sarah Physician Admitting clinician: Kristyn Morocho Attending physician on admission: Kristyn Morocho Consults: 08/30/24 18:13 Addiction Medicine Routine Consulting Provider: Addiction Covering Reason for consultation: alcohol use Has provider been notified: Yes Attending physician on discharge: Kristyn Morocho Discharging clinician: Jovon Kumar DS: Diagnosis Discharge Diagnosis (1) Depression: Status: Acute (2) Alcohol use disorder: Status: Acute (3) Cannabis use disorder: Status: Acute (4) Cocaine use disorder: Status: Acute DS: Medications Discharge Medications Home Medications: Home Medications ?Medication ?Instructions ?Recorded ?Confirmed No Known Home Meds 08/29/24 08/29/24 Mental Status Exam Mental Status Exam Narrative: Patient Appearance: disheveled Patient Orientation: Person, Place, Time and Situation Level of Consciousness: Alert Patient Behavior: confused. cooperative. Mood Description: Depressed and Anxious. Confused Affect Description: Flat Patient Cognition Impaired: Sedated looking received [place]ob[place] earlier in the day. Ability to Follow Directions: fair Speech Pattern: Soft Speech Memory Description: Episodic Impaired Hallucinations: None Delusions: Not Present Thought Content: positive for Perseveration and positive for Suicidal Ideation Depressive Symptoms: Increased Anxiety, Isolating-Friends/Family, Thoughts of /Suicide and Low Self Esteem Judgement: Fair Data Data Completed and Pending Completed studies during hospitalization [Text1]: 08/29/24 08/29/24 08/31/24 15:29 15:48 08:33 WBC 9.4 RBC 5.43 Hgb 17.8 Hct 48.0 MCV 88.4 MCH 32.8 MCHC 37.1 H RDW 12.2 Plt Count 259 MPV 9.6 Immature Gran % (Auto) 0.3 Neut % (Auto) 70.5 Lymph % (Auto) 21.2 [place] % (Auto) 6.3 Eos % (Auto) 1.2 Baso % (Auto) 0.5 Lymph # (Auto) 2.0 [place] # (Auto) 0.6 Eos # (Auto) 0.1 Baso # (Auto) 0.1 Abs Immat Gran (auto) 0.03 Absolute Neuts (auto) 6.7 Absolute Nucleated RBC 0.000 Nucleated RBC % (auto) 0.0 Sodium 142 Potassium 4.1 Chloride 105 Carbon Dioxide 27 Anion Gap 14 BUN 6 L Creatinine 0.89 Estim Creat Clear Calc 163.4 Estimated GFR > 60 Random Glucose 91 Estimat Average Glucose 91 Hemoglobin A1c % 4.8 Calcium 8.9 Total Bilirubin 0.6 1.3 H Direct Bilirubin 0.3 0.5 AST 93 H 26 ALT 165 H 90 H Alkaline Phosphatase 76 69 Total Protein 7.3 7.2 Albumin 4.7 4.5 Triglycerides 101 Cholesterol 140 LDL Cholesterol, Calc 78 HDL Cholesterol 42 TSH 1.52 Urine Color Yellow Urine Appearance Clear Urine pH 6.0 Ur Specific [place] 1.015 Urine Protein Negative Urine Glucose (UA) Negative Urine Ketones Negative Urine Blood Negative Urine Nitrite Negative Ur Leukocyte Esterase Trace H Urine RBC 0-2 Urine WBC 11-20 H Ur Squamous Epith Cells 0-2 Urine Bacteria None Seen Hyaline Casts 0-2 Salicylates < 5.0 L Urine Opiates Screen Not Detected Ur Buprenorphine Scrn Not Detected Ur Oxycodone Screen Not Detected Urine Methadone Screen Not Detected Urine Fentanyl Screen Not Detected Acetaminophen < 3 Ur Barbiturates Screen Not Detected Ur Phencyclidine Scrn Not Detected Ur Amphetamines Screen Not Detected U Benzodiazepines Scrn Not Detected Urine Cocaine Screen POSITIVE H U Marijuana (THC) Screen POSITIVE H Ethyl Alcohol 92 Hep Bs Antigen Negative Hep Bs Antibody NONREACTIVE Hep B Core Total Ab Nonreactive Hepatitis C Ab (EIA) Nonreactive 08/31/24 15:50 Urine clean catch Urine Culture - Final DS: Summary Status at Discharge Functional status at discharge: independent ambulation Overall status at discharge: patient is not back to baseline Time Spent with Patient Time attestation: Total time managing care of this patient today _ minutes. Time spent: Greater than 30 minutes Discharge Plan Discharge Anticipated Discharge Date/Time: 09/02/24 14:00 Patient Disposition: Xfer Acute Care Hospital Discharge Diagnosis: Bipolar disorder Referrals: Physician,None [Primary Care Provider] - 1 Week Discharge Medications: No Action No Known Home Meds Discharge Orders: Discharge Order (Routine); Ordered 09/02/24 Ordered By: Jovon Kumar Diet: Advance to usual diet Activity on Discharge: As tolerated Stand Alone Forms: Patient Portal Discharge page Print Language: Swedish Care Plan Goals: Continue mood stabilization. Maintain sobriety. Health Concerns: Treatment refractory seizure disorder Plan of Treatment: Transfer to medicine for management of seizure activity. Assessment: HPI Subjective Notes: Kennedy Warning and Conditional Voluntary Healthcare Proxy: No Guardianship: No Medical Problems Affecting Mental Status: No Narrative: 23 yo male to ER with family. Pt reported SI in response to OUI. States he was traveling in excess of 70 mph, intoxicated. Reports since his sister in 2020 drinking to cope with grief surrounding her via OD. Both were close, spent much time together and he has not recovered since this loss. Past Psychiatric History: IP: Denies OP: Denies Medical Evaluation Reviewed: Yes [facility] Medical History (Updated 08/31/24 @ 09:54 by Kristyn Morocho, ZOHAIB) Cocaine use disorder Cannabis use disorder Alcohol use disorder Mandibular pain Family History: Substance abuse Social History: Born and raised in [place] by parents Eleven siblings No children currently Substance History: alcohol, cannabis, nicotine Toxicology: BAL 92, Postive THC, Cocaine Trauma History: Loss of sister to OD 2020 Patient was admitted to with diagnosis of Depression, PTSD-loss of sister, 2020, Alcohol, Cannabis, Cocaine use disorders. He was started on Lamotrigine and Remeron. On 09/02, he was noted to be having involuntary jerking movements. He says he has had seizures since he was 6 months old. He has history of treatment resistant seizures. He was reporting he is having seizures which he identified as his [place] ones. He was noted to be confused with intermittent, frequent, sudden jerky movements of his upper extremities. He was evaluated by medicine and it was decided to transfer patient to inpatient medicine for further observation and evaluation. ,
--- NOTE | 2024-09-02 18:43 | P.PNPSI_ITS ---
Subjective Subjective Date of Service: 09/02/24 Reason For Visit: depression/SI Interim History: Patient reports he is doing well. I am itching to go to another program . He has been under good behavioral control. He was started on Remeron and Lamictal. He has not had any side effects. He is future oriented and thinking about his sobriety. Denies SI. Mental Status Exam Mental Status Exam Narrative: Patient Appearance: Appropriate Patient Orientation: Person, Place, Time and Situation Level of Consciousness: Alert Patient Behavior: Appropriate, Talkative, Cooperative and Good Eye Contact Mood Description: Depressed and Anxious Affect Description: Flat Patient Cognition Impaired: No Ability to Follow Directions: Good Speech Pattern: Spontaneous Speech Memory Description: Episodic Impaired Hallucinations: None Delusions: Not Present Perceptual Disturbances: Depersonalization and Derealization Thought Content: positive for Perseveration and positive for Suicidal Ideation Depressive Symptoms: Increased Anxiety, Isolating-Friends/Family, Thoughts of /Suicide and Low Self Esteem Judgement: Fair Diagnostics Vital Signs (24Hr): Vital Signs - 24 hr 09/01/24 19:54 09/02/24 09:05 Temperature 98.8 F 98.3 F Pulse Rate 80 74 Respiratory Rate 16 16 Blood Pressure 109/68 111/59 L Pulse Oximetry 97 98 Oxygen Delivery Method Room Air Room Air BMI result Body Mass Index 29.2 Labs 08/29/24 15:48 08/29/24 15:48 Medications Medications Current Medications Acetaminophen (Acetaminophen 325 Mg Tablet) 650 mg PO Q6H PRN PRN Reason: Headache/Pain Mild Scale (1-3) Al Hydroxide/Mg Hydroxide (Magnesium Hydrox/Alum Hydrox 30 Ml Oral.Susp) 30 ml PO Q6H PRN PRN Reason: Heartburn/Nausea Cephalexin HCl (Cephalexin 500 Mg Capsule) 500 mg PO BID [facility] Last Admin: 09/02/24 10:37 Dose: 500 mg Folic Acid (Folic Acid 1 Mg Tablet) 1 mg PO DAILY [facility] Last Admin: 09/02/24 10:37 Dose: 1 mg Hydroxyzine HCl (Hydroxyzine Hcl 25 Mg Tablet) 25 mg PO Q6H PRN PRN Reason: Anxiety Last Admin: 09/01/24 18:34 Dose: 25 mg Lamotrigine (Lamotrigine 25 Mg Tablet) 25 mg PO BEDTIME [facility] Last Admin: 09/01/24 20:33 Dose: 25 mg Magnesium Hydroxide (Milk Of Magnesia 30 Ml Oral.Susp) 30 ml PO DAILY PRN PRN Reason: Constipation Mirtazapine (Mirtazapine 7.5 Mg Tablet) 7.5 mg PO BEDTIME [facility] Last Admin: 09/01/24 20:33 Dose: 7.5 mg Multivitamins/Vitamin C (Multivitamin Tablet) 1 tab PO DAILY [facility] Last Admin: 09/02/24 10:37 Dose: 1 tab Nicotine (Nicotine 21 Mg Patch.Td24) 21 mg TRANSDERMA DAILY PRN PRN Reason: smoking cessation Last Admin: 09/01/24 18:31 Dose: 21 mg Nicotine Polacrilex (Nicotine Polacrilex 2 Mg Gum) 4 mg BUCCAL Q2H PRN PRN Reason: Nicotine Cravings Last Admin: 09/01/24 18:31 Dose: 4 mg Olanzapine (Olanzapine 5 Mg Tablet) 5 mg PO TID PRN PRN Reason: agitation Thiamine HCl (Thiamine Hcl 100 Mg Tablet) 100 mg PO DAILY [facility] Last Admin: 09/02/24 10:37 Dose: 100 mg Trazodone HCl (Trazodone Hcl 50 Mg Tablet) 50 mg PO BEDTIME MRX1 PRN PRN Reason: Insomnia Allergies Allergies Allergy/AdvReac Type Severity Reaction Status Date / Time No Known Allergies Allergy Verified 08/29/24 15:12 Assessment & Plan Assessment & Plan (1) Depression: Status: Acute Code(s): F32.A - Depression, unspecified (2) Alcohol use disorder: Status: Acute Code(s): F10.90 - Alcohol use, unspecified, uncomplicated (3) Cannabis use disorder: Status: Acute Code(s): F12.90 - Cannabis use, unspecified, uncomplicated (4) Cocaine use disorder: Status: Acute Code(s): F14.10 - Cocaine abuse, uncomplicated Plan Depression, PTSD-loss of sister, 2020, Alcohol, Cannabis, Cocaine use disorders. Plan: Admit, CV, 15 minute checks Collateral contacts Encourage full milieu Medical diagnostics as needed. Medications evaluation Discharge planning. 09/01/24: Lamictal 25 mg HS, started 08/31. Remeron 7.5 mg HS 09/02: Monitor response to recent medication changes. Continue current management and treatment plan. Reason for continued inpatient stay Substantial Risk for: harm to self and rapid decompensation Time Spent With Patient Time: Total time managing care of this patient today ____ minutes.
[2024-09-02 20:00] VITALS: BP 128/67; PULSE 67; O2SAT 99
[2024-09-02] MEDS: lamoTRIgine 25 MG TABLET PO (20:23)
[2024-09-02] MEDS: Mirtazapine 7.5 MG TABLET PO (20:23)
[2024-09-03 04:00] VITALS: BP 108/54; PULSE 50; TEMP 36.7; O2SAT 50
[2024-09-03 08:00] VITALS: BP 123/65; PULSE 54; TEMP 36.7; O2SAT 98
[2024-09-03] MEDS: Thiamine HCL 100 MG TABLET PO (09:08)
[2024-09-03] MEDS: Multivitamin TABLET 1 TAB PO (09:08)
[2024-09-03] MEDS: cephALEXin 500 MG CAPSULE PO ×2 (09:08→22:15)
[2024-09-03] MEDS: Folic Acid 1 MG TABLET PO (09:08)
[2024-09-03] MEDS: Nicotine 21 MG PATCH.TD24 TRANSDERMA (11:29)
--- NOTE | 2024-09-03 11:38 | MHC.RECOVRN ---
AUDIT-C Brief Intervention Pt had positive screen for unhealthy alcohol use on admission, subsequently met with t/w to discuss alcohol use and recovery supports/options. This food writer met with patient to discuss current alcohol use and concerns related to increased risk of alcohol related problems.? This is patient's first admission related to mental health/alcohol use. Pt reports 10 drinks daily x 4 years. Pt denies period(s) of recovery since drinking daily. Discussed how alcohol use has impacted health, including negative impact on overall physical wellbeing. Pt reports he has had 2 DUIs. Reports family history of AUD. Pts goal is abstinence. Withdrawal History: denies hx seizures Treatment History: denies hx treatment, however, reports class for DUI through [facility] Supports:?parents, sister, brother in law Discussed risk reduction strategies including drinking below the recommended limit. Provided pt with written resources including information on inpatient and outpatient treatment, ANGELINA, harm reduction, and recovery coaching. Pts family has mentioned [address] to pt, educated pt on that process. Pt plans to review resources and discuss with family prior to any referrals. Pt provided with t/w contact information if questions or concerns arise. Denies other questions or concerns at this time.?
--- NOTE | 2024-09-03 15:01 | HO.PSYCHPN ---
Subjective Subjective Date of Service: 09/03/24 Reason For Visit: depression/SI Subjective Notes: Conditional Voluntary Healthcare Proxy: No Guardianship: No Medical Problems Affecting Mental Status: No Interim History: Tolerating Lamictal/Remeron Team met with pt and family today. Pt is agreeable per team to attend a program post discharge. R[facility], [place] [facility] and [facility] are being discussed. On the unit, pt is interactive with peers, visable, engaged. Three day notice expires 09/06. Medication Compliance: Yes Side effects from medications: No Attending Groups: Intermittent Review of Systems Acute medical concerns: No Medical Review of Systems: unchanged Review of Systems Review of Systems Denies Mental Status Exam Mental Status Exam Narrative: Alert, oriented, interactive Affect and Mood are constricted Thought content process are without symptoms Diagnostics Vital Signs (24Hr): Vital Signs - 24 hr 09/02/24 20:00 09/03/24 04:00 09/03/24 08:00 Temperature 98.0 F 98.0 F Pulse Rate 67 50 54 Blood Pressure 128/67 108/54 L 123/65 Pulse Oximetry 99 50 L 98 Oxygen Delivery Method Room Air Room Air Room Air BMI result Body Mass Index 29.2 Labs 08/29/24 15:48 08/29/24 15:48 Medications Medications Current Medications Acetaminophen (Acetaminophen 325 Mg Tablet) 650 mg PO Q6H PRN PRN Reason: Headache/Pain Mild Scale (1-3) Al Hydroxide/Mg Hydroxide (Magnesium Hydrox/Alum Hydrox 30 Ml Oral.Susp) 30 ml PO Q6H PRN PRN Reason: Heartburn/Nausea Cephalexin HCl (Cephalexin 500 Mg Capsule) 500 mg PO BID [facility] Last Admin: 09/03/24 09:08 Dose: 500 mg Folic Acid (Folic Acid 1 Mg Tablet) 1 mg PO DAILY [facility] Last Admin: 09/03/24 09:08 Dose: 1 mg Hydroxyzine HCl (Hydroxyzine Hcl 25 Mg Tablet) 25 mg PO Q6H PRN PRN Reason: Anxiety Last Admin: 09/01/24 18:34 Dose: 25 mg Lamotrigine (Lamotrigine 25 Mg Tablet) 25 mg PO BEDTIME [facility] Last Admin: 09/02/24 20:23 Dose: 25 mg Magnesium Hydroxide (Milk Of Magnesia 30 Ml Oral.Susp) 30 ml PO DAILY PRN PRN Reason: Constipation Mirtazapine (Mirtazapine 7.5 Mg Tablet) 7.5 mg PO BEDTIME [facility] Last Admin: 09/02/24 20:23 Dose: 7.5 mg Multivitamins/Vitamin C (Multivitamin Tablet) 1 tab PO DAILY [facility] Last Admin: 09/03/24 09:08 Dose: 1 tab Nicotine (Nicotine 21 Mg Patch.Td24) 21 mg TRANSDERMA DAILY PRN PRN Reason: smoking cessation Last Admin: 09/03/24 11:29 Dose: 21 mg Nicotine Polacrilex (Nicotine Polacrilex 2 Mg Gum) 4 mg BUCCAL Q2H PRN PRN Reason: Nicotine Cravings Last Admin: 09/01/24 18:31 Dose: 4 mg Olanzapine (Olanzapine 5 Mg Tablet) 5 mg PO TID PRN PRN Reason: agitation Thiamine HCl (Thiamine Hcl 100 Mg Tablet) 100 mg PO DAILY [facility] Last Admin: 09/03/24 09:08 Dose: 100 mg Trazodone HCl (Trazodone Hcl 50 Mg Tablet) 50 mg PO BEDTIME MRX1 PRN PRN Reason: Insomnia Allergies Allergies Allergy/AdvReac Type Severity Reaction Status Date / Time No Known Allergies Allergy Verified 08/29/24 15:12 Assessment & Plan Assessment & Plan (1) Depression: Status: Acute Code(s): F32.A - Depression, unspecified (2) Alcohol use disorder: Status: Acute Code(s): F10.90 - Alcohol use, unspecified, uncomplicated (3) Cannabis use disorder: Status: Acute Code(s): F12.90 - Cannabis use, unspecified, uncomplicated (4) Cocaine use disorder: Status: Acute Code(s): F14.10 - Cocaine abuse, uncomplicated Plan Depression, PTSD-loss of sister, 2020, Alcohol, Cannabis, Cocaine use disorders. Plan: Admit, CV, 15 minute checks Collateral contacts Encourage full milieu Medical diagnostics as needed. Medications evaluation Discharge planning. 09/01/24: Lamictal 25 mg HS, started 08/31. Remeron 7.5 mg HS 09/02: Monitor response to recent medication changes. Continue current management and treatment plan. 09/03: Discharge planning Family meeting today-mother told pt she plans a [address] if he will not accept ongoing treatment. Pt is interested in pursuit of further care, this verbalized prior to family meeting. Reason for continued inpatient stay Substantial Risk for: rapid decompensation Time Spent With Patient Time: Total time managing care of this patient today ____ minutes.
[2024-09-03] MEDS: Nicotine Polacrilex 2 MG GUM 4 MG BUCCAL (15:46)
[2024-09-03] MEDS: lamoTRIgine 25 MG TABLET PO (22:15)
[2024-09-03] MEDS: Mirtazapine 7.5 MG TABLET PO (22:15)
[2024-09-04 07:54] VITALS: BP 113/57; PULSE 58; RESP 16; TEMP 36.9; O2SAT 98
[2024-09-04] MEDS: Folic Acid 1 MG TABLET PO (08:57)
[2024-09-04] MEDS: cephALEXin 500 MG CAPSULE PO ×2 (08:57→22:51)
[2024-09-04] MEDS: Multivitamin TABLET 1 TAB PO (08:57)
[2024-09-04] MEDS: Thiamine HCL 100 MG TABLET PO (08:58)
--- NOTE | 2024-09-04 10:42 | P.PNPSI_ITS ---
Subjective Subjective Date of Service: 09/04/24 Reason For Visit: depression/SI Interim History: Tolerating Lamictal/Remeron. Feels improved although he says he feels depressed today 07/15 and anxious 05/15. Not sure why. Denies cravings. Thinking about going to a program after DC. On the unit, pt is engaged. Three day notice expires 09/06. Review of Systems Review of Systems Denies Yes all other systems are reviewed and are negative Mental Status Exam Mental Status Exam Narrative: Alert, oriented, interactive Affect and Mood are constricted Thought content process are without symptoms Patient Appearance: Appropriate Patient Orientation: Person, Place, Time and Situation Level of Consciousness: Alert Patient Behavior: Appropriate, Talkative, Cooperative and Good Eye Contact Mood Description: Depressed and Anxious Affect Description: Flat Patient Cognition Impaired: No Ability to Follow Directions: Good Speech Pattern: Spontaneous Speech Memory Description: Episodic Impaired Diagnostics Vital Signs (24Hr): Vital Signs - 24 hr 09/04/24 07:54 Temperature 98.4 F Pulse Rate 58 Respiratory Rate 16 Blood Pressure 113/57 L Pulse Oximetry 98 Oxygen Delivery Method Room Air BMI result Body Mass Index 29.2 Labs 08/29/24 15:48 08/29/24 15:48 Medications Medications Current Medications Acetaminophen (Acetaminophen 325 Mg Tablet) 650 mg PO Q6H PRN PRN Reason: Headache/Pain Mild Scale (1-3) Al Hydroxide/Mg Hydroxide (Magnesium Hydrox/Alum Hydrox 30 Ml Oral.Susp) 30 ml PO Q6H PRN PRN Reason: Heartburn/Nausea Cephalexin HCl (Cephalexin 500 Mg Capsule) 500 mg PO BID [facility] Last Admin: 09/04/24 08:57 Dose: 500 mg Folic Acid (Folic Acid 1 Mg Tablet) 1 mg PO DAILY [facility] Last Admin: 09/04/24 08:57 Dose: 1 mg Hydroxyzine HCl (Hydroxyzine Hcl 25 Mg Tablet) 25 mg PO Q6H PRN PRN Reason: Anxiety Last Admin: 09/01/24 18:34 Dose: 25 mg Lamotrigine (Lamotrigine 25 Mg Tablet) 25 mg PO BEDTIME [facility] Last Admin: 09/03/24 22:15 Dose: 25 mg Magnesium Hydroxide (Milk Of Magnesia 30 Ml Oral.Susp) 30 ml PO DAILY PRN PRN Reason: Constipation Mirtazapine (Mirtazapine 7.5 Mg Tablet) 7.5 mg PO BEDTIME [facility] Last Admin: 09/03/24 22:15 Dose: 7.5 mg Multivitamins/Vitamin C (Multivitamin Tablet) 1 tab PO DAILY [facility] Last Admin: 09/04/24 08:57 Dose: 1 tab Nicotine (Nicotine 21 Mg Patch.Td24) 21 mg TRANSDERMA DAILY PRN PRN Reason: smoking cessation Last Admin: 09/03/24 11:29 Dose: 21 mg Nicotine Polacrilex (Nicotine Polacrilex 2 Mg Gum) 4 mg BUCCAL Q2H PRN PRN Reason: Nicotine Cravings Last Admin: 09/03/24 15:46 Dose: 4 mg Olanzapine (Olanzapine 5 Mg Tablet) 5 mg PO TID PRN PRN Reason: agitation Thiamine HCl (Thiamine Hcl 100 Mg Tablet) 100 mg PO DAILY [facility] Last Admin: 09/04/24 08:58 Dose: 100 mg Trazodone HCl (Trazodone Hcl 50 Mg Tablet) 50 mg PO BEDTIME MRX1 PRN PRN Reason: Insomnia Allergies Allergies Allergy/AdvReac Type Severity Reaction Status Date / Time No Known Allergies Allergy Verified 08/29/24 15:12 Assessment & Plan Assessment & Plan (1) Depression: Status: Acute Code(s): F32.A - Depression, unspecified (2) Alcohol use disorder: Status: Acute Code(s): F10.90 - Alcohol use, unspecified, uncomplicated (3) Cannabis use disorder: Status: Acute Code(s): F12.90 - Cannabis use, unspecified, uncomplicated (4) Cocaine use disorder: Status: Acute Code(s): F14.10 - Cocaine abuse, uncomplicated Plan Depression, PTSD-loss of sister, 2020, Alcohol, Cannabis, Cocaine use disorders. Plan: Admit, CV, 15 minute checks Collateral contacts Encourage full milieu Medical diagnostics as needed. Medications evaluation Discharge planning. 09/01/24: Lamictal 25 mg HS, started 08/31. Remeron 7.5 mg HS 09/02: Monitor response to recent medication changes. Continue current management and treatment plan. 09/03: Discharge planning Family meeting today-mother told pt she plans a Section 35 if he will not accept ongoing treatment. Pt is interested in pursuit of further care, this verbalized prior to family meeting. 09/04: Continue current management and treatment plan. Reason for continued inpatient stay Substantial Risk for: harm to self and rapid decompensation Time Spent With Patient Time: Total time managing care of this patient today ____ minutes.
[2024-09-04] MEDS: Nicotine 21 MG PATCH.TD24 TRANSDERMA (12:40)
[2024-09-04] MEDS: hydrOXYzine HCL 25 MG TABLET PO (12:41)
[2024-09-04 19:46] VITALS: BP 151/78; PULSE 63; RESP 16; TEMP 36.9; O2SAT 96
[2024-09-04] MEDS: Nicotine Polacrilex 2 MG GUM 4 MG BUCCAL (22:36)
[2024-09-04] MEDS: Mirtazapine 7.5 MG TABLET PO (22:51)
[2024-09-04] MEDS: lamoTRIgine 25 MG TABLET PO (22:51)
[2024-09-05 08:00] VITALS: BP 100/55; PULSE 56; RESP 16; TEMP 36.6; O2SAT 99
--- NOTE | 2024-09-05 09:14 | P.PNPSI_ITS ---
Subjective Subjective Date of Service: 09/05/24 Reason For Visit: depression/SI Interim History: Patient remains stable on current medication regimen. Denies side effects. Feels his mood has improved some. He is engaged in treatment and on the unit. Retracted 3 day notice. Anxiety about relapse. Overall, feels improved although he says he is worried about relapsing. Review of Systems Review of Systems Denies Yes all other systems are reviewed and are negative Mental Status Exam Mental Status Exam Narrative: Alert, oriented, interactive Affect and Mood are constricted Thought content process are without symptoms Patient Appearance: Appropriate Patient Orientation: Person, Place, Time and Situation Level of Consciousness: Alert Patient Behavior: Appropriate, Talkative, Cooperative and Good Eye Contact Mood Description: Depressed and Anxious Affect Description: Flat Patient Cognition Impaired: No Ability to Follow Directions: Good Speech Pattern: Spontaneous Speech Memory Description: Episodic Impaired Diagnostics Vital Signs (24Hr): Vital Signs - 24 hr 09/04/24 19:46 09/05/24 08:00 Temperature 98.4 F 97.8 F Pulse Rate 63 56 Respiratory Rate 16 16 Blood Pressure 151/78 H 100/55 L Pulse Oximetry 96 99 Oxygen Delivery Method Room Air Room Air BMI result Body Mass Index 29.2 Labs 08/29/24 15:48 08/29/24 15:48 Medications Medications Current Medications Acetaminophen (Acetaminophen 325 Mg Tablet) 650 mg PO Q6H PRN PRN Reason: Headache/Pain Mild Scale (1-3) Al Hydroxide/Mg Hydroxide (Magnesium Hydrox/Alum Hydrox 30 Ml Oral.Susp) 30 ml PO Q6H PRN PRN Reason: Heartburn/Nausea Cephalexin HCl (Cephalexin 500 Mg Capsule) 500 mg PO BID [facility] Last Admin: 09/04/24 22:51 Dose: 500 mg Folic Acid (Folic Acid 1 Mg Tablet) 1 mg PO DAILY [facility] Last Admin: 09/04/24 08:57 Dose: 1 mg Hydroxyzine HCl (Hydroxyzine Hcl 25 Mg Tablet) 25 mg PO Q6H PRN PRN Reason: Anxiety Last Admin: 09/04/24 12:41 Dose: 25 mg Lamotrigine (Lamotrigine 25 Mg Tablet) 25 mg PO BEDTIME [facility] Last Admin: 09/04/24 22:51 Dose: 25 mg Magnesium Hydroxide (Milk Of Magnesia 30 Ml Oral.Susp) 30 ml PO DAILY PRN PRN Reason: Constipation Mirtazapine (Mirtazapine 7.5 Mg Tablet) 7.5 mg PO BEDTIME [facility] Last Admin: 09/04/24 22:51 Dose: 7.5 mg Multivitamins/Vitamin C (Multivitamin Tablet) 1 tab PO DAILY [facility] Last Admin: 09/04/24 08:57 Dose: 1 tab Nicotine (Nicotine 21 Mg Patch.Td24) 21 mg TRANSDERMA DAILY PRN PRN Reason: smoking cessation Last Admin: 09/04/24 12:40 Dose: 21 mg Nicotine Polacrilex (Nicotine Polacrilex 2 Mg Gum) 4 mg BUCCAL Q2H PRN PRN Reason: Nicotine Cravings Last Admin: 09/04/24 22:36 Dose: 4 mg Olanzapine (Olanzapine 5 Mg Tablet) 5 mg PO TID PRN PRN Reason: agitation Thiamine HCl (Thiamine Hcl 100 Mg Tablet) 100 mg PO DAILY [facility] Last Admin: 09/04/24 08:58 Dose: 100 mg Trazodone HCl (Trazodone Hcl 50 Mg Tablet) 50 mg PO BEDTIME MRX1 PRN PRN Reason: Insomnia Allergies Allergies Allergy/AdvReac Type Severity Reaction Status Date / Time No Known Allergies Allergy Verified 08/29/24 15:12 Assessment & Plan Assessment & Plan (1) Depression: Status: Acute Code(s): F32.A - Depression, unspecified (2) Alcohol use disorder: Status: Acute Code(s): F10.90 - Alcohol use, unspecified, uncomplicated (3) Cannabis use disorder: Status: Acute Code(s): F12.90 - Cannabis use, unspecified, uncomplicated (4) Cocaine use disorder: Status: Acute Code(s): F14.10 - Cocaine abuse, uncomplicated Plan Depression, PTSD-loss of sister, 2020, Alcohol, Cannabis, Cocaine use disorders. Plan: Admit, CV, 15 minute checks Collateral contacts Encourage full milieu Medical diagnostics as needed. Medications evaluation Discharge planning. 09/01/24: Lamictal 25 mg HS, started 08/31. Remeron 7.5 mg HS 09/02: Monitor response to recent medication changes. Continue current management and treatment plan. 09/03: Discharge planning Family meeting today-mother told pt she plans a Section 35 if he will not accept ongoing treatment. Pt is interested in pursuit of further care, this verbalized prior to family meeting. 09/04: Continue current management and treatment plan. 09/05: Retracted 3 day notice. Considering longer term program. Continue current medications and treatment plan. Reason for continued inpatient stay Substantial Risk for: harm to self, inability to function and rapid decompensation Time Spent With Patient Time: Total time managing care of this patient today ____ minutes.
[2024-09-05] MEDS: cephALEXin 500 MG CAPSULE PO ×2 (10:49→22:08)
[2024-09-05] MEDS: Thiamine HCL 100 MG TABLET PO (10:49)
[2024-09-05] MEDS: Folic Acid 1 MG TABLET PO (10:49)
[2024-09-05] MEDS: Multivitamin TABLET 1 TAB PO (10:49)
[2024-09-05] MEDS: Nicotine 21 MG PATCH.TD24 TRANSDERMA (14:40)
[2024-09-05] MEDS: hydrOXYzine HCL 25 MG TABLET PO (14:40)
[2024-09-05] MEDS: Nicotine Polacrilex 2 MG GUM 4 MG BUCCAL ×2 (16:36→19:45)
[2024-09-05 20:00] VITALS: BP 138/72; PULSE 72; TEMP 37; O2SAT 99
[2024-09-05] MEDS: Mirtazapine 7.5 MG TABLET PO (22:07)
[2024-09-05] MEDS: lamoTRIgine 25 MG TABLET PO (22:08)
[2024-09-06 08:25] VITALS: BP 120/62; PULSE 47; RESP 18; TEMP 36.6; O2SAT 98
[2024-09-06] MEDS: cephALEXin 500 MG CAPSULE PO ×2 (09:00→22:35)
[2024-09-06] MEDS: Folic Acid 1 MG TABLET PO (09:00)
[2024-09-06] MEDS: Multivitamin TABLET 1 TAB PO (09:00)
[2024-09-06] MEDS: Thiamine HCL 100 MG TABLET PO (09:00)
--- NOTE | 2024-09-06 10:16 | HO.PSYCHPN ---
Subjective Subjective Date of Service: 09/06/24 Reason For Visit: depression/SI Subjective Notes: Conditional Voluntary and 3 Day (retracted) Healthcare Proxy: No Guardianship: No Medical Problems Affecting Mental Status: No Interim History: Tolerating Lamictal/Mirtazapine combination. Awaiting acceptance with [facility]. Possible discharge this week. Visited by mother today. Medication Compliance: Yes Side effects from medications: No Attending Groups: Intermittent Review of Systems Acute medical concerns: No Medical Review of Systems: unchanged Review of Systems Review of Systems Yes all other systems are reviewed and are negative Mental Status Exam Mental Status Exam Narrative: Engaged with peers today Awaiting placement Patient Appearance: Appropriate Patient Orientation: Person, Place, Time and Situation Level of Consciousness: Alert Patient Behavior: Appropriate, Talkative, Cooperative and Good Eye Contact Mood Description: Depressed and Anxious Affect Description: Flat Patient Cognition Impaired: No Ability to Follow Directions: Good Speech Pattern: Spontaneous Speech Memory Description: Episodic Impaired Diagnostics Vital Signs (24Hr): Vital Signs - 24 hr 09/05/24 20:00 09/06/24 08:25 Temperature 98.6 F 97.8 F Pulse Rate 72 47 L Respiratory Rate 18 Blood Pressure 138/72 120/62 Pulse Oximetry 99 98 Oxygen Delivery Method Room Air Room Air BMI result Body Mass Index 29.2 Labs 08/29/24 15:48 08/29/24 15:48 Medications Medications Current Medications Acetaminophen (Acetaminophen 325 Mg Tablet) 650 mg PO Q6H PRN PRN Reason: Headache/Pain Mild Scale (1-3) Al Hydroxide/Mg Hydroxide (Magnesium Hydrox/Alum Hydrox 30 Ml Oral.Susp) 30 ml PO Q6H PRN PRN Reason: Heartburn/Nausea Cephalexin HCl (Cephalexin 500 Mg Capsule) 500 mg PO BID [facility] Last Admin: 09/06/24 09:00 Dose: 500 mg Folic Acid (Folic Acid 1 Mg Tablet) 1 mg PO DAILY [facility] Last Admin: 09/06/24 09:00 Dose: 1 mg Hydroxyzine HCl (Hydroxyzine Hcl 25 Mg Tablet) 25 mg PO Q6H PRN PRN Reason: Anxiety Last Admin: 09/05/24 14:40 Dose: 25 mg Lamotrigine (Lamotrigine 25 Mg Tablet) 25 mg PO BEDTIME [facility] Last Admin: 09/05/24 22:08 Dose: 25 mg Magnesium Hydroxide (Milk Of Magnesia 30 Ml Oral.Susp) 30 ml PO DAILY PRN PRN Reason: Constipation Mirtazapine (Mirtazapine 7.5 Mg Tablet) 7.5 mg PO BEDTIME [facility] Last Admin: 09/05/24 22:07 Dose: 7.5 mg Multivitamins/Vitamin C (Multivitamin Tablet) 1 tab PO DAILY [facility] Last Admin: 09/06/24 09:00 Dose: 1 tab Nicotine (Nicotine 21 Mg Patch.Td24) 21 mg TRANSDERMA DAILY PRN PRN Reason: smoking cessation Last Admin: 09/05/24 14:40 Dose: 21 mg Nicotine Polacrilex (Nicotine Polacrilex 2 Mg Gum) 4 mg BUCCAL Q2H PRN PRN Reason: Nicotine Cravings Last Admin: 09/05/24 19:45 Dose: 4 mg Olanzapine (Olanzapine 5 Mg Tablet) 5 mg PO TID PRN PRN Reason: agitation Thiamine HCl (Thiamine Hcl 100 Mg Tablet) 100 mg PO DAILY [facility] Last Admin: 09/06/24 09:00 Dose: 100 mg Trazodone HCl (Trazodone Hcl 50 Mg Tablet) 50 mg PO BEDTIME MRX1 PRN PRN Reason: Insomnia Allergies Allergies Allergy/AdvReac Type Severity Reaction Status Date / Time No Known Allergies Allergy Verified 08/29/24 15:12 Assessment & Plan Assessment & Plan (1) Depression: Status: Acute Code(s): F32.A - Depression, unspecified (2) Alcohol use disorder: Status: Acute Code(s): F10.90 - Alcohol use, unspecified, uncomplicated (3) Cannabis use disorder: Status: Acute Code(s): F12.90 - Cannabis use, unspecified, uncomplicated (4) Cocaine use disorder: Status: Acute Code(s): F14.10 - Cocaine abuse, uncomplicated Plan Depression, PTSD-loss of sister, 2020, Alcohol, Cannabis, Cocaine use disorders. Plan: Admit, CV, 15 minute checks Collateral contacts Encourage full milieu Medical diagnostics as needed. Medications evaluation Discharge planning. 09/01/24: Lamictal 25 mg HS, started 08/31. Remeron 7.5 mg HS 09/02: Monitor response to recent medication changes. Continue current management and treatment plan. 09/03: Discharge planning Family meeting today-mother told pt she plans a Section 35 if he will not accept ongoing treatment. Pt is interested in pursuit of further care, this verbalized prior to family meeting. 09/04: Continue current management and treatment plan. 09/05: Retracted 3 day notice. Considering longer term program. Continue current medications and treatment plan. 09/06: Accepted with [facility]. Probable discharge this week. Reason for continued inpatient stay Substantial Risk for: rapid decompensation Time Spent With Patient Time: Total time managing care of this patient today ____ minutes.
[2024-09-06] MEDS: OLANZapine 5 MG TABLET PO (18:12)
[2024-09-06] MEDS: hydrOXYzine HCL 25 MG TABLET PO (18:12)
[2024-09-06 20:00] VITALS: BP 121/58; PULSE 73; TEMP 36.9; O2SAT 98
[2024-09-06] MEDS: Mirtazapine 7.5 MG TABLET PO (22:35)
[2024-09-06] MEDS: lamoTRIgine 25 MG TABLET PO (22:36)
[2024-09-07 08:00] VITALS: BP 112/57; PULSE 50; RESP 16; TEMP 36.3; O2SAT 100
--- NOTE | 2024-09-07 09:42 | HO.PSYCHPN ---
Subjective Subjective Date of Service: 09/07/24 Reason For Visit: depression/SI Subjective Notes: Conditional Voluntary Interim History: Patient reports feeling good and ready to go to the rehab facility . Pt awaiting bed at treatment program. denies any issues at this time. denies SI/HI/VH/AH. Medication Compliance: Yes Side effects from medications: No Review of Systems Constitutional: Reports as per HPI Eyes: Reports as per HPI Reports as per HPI Cardiovascular: Reports as per HPI Respiratory: Reports as per HPI Gastrointestinal: Reports as per HPI Genitourinary: Reports as per HPI Musculoskeletal: Reports as per HPI Skin/Breast: Reports as per HPI Reports as per HPI Psychiatric: Reports as per HPI Endocrine: Reports as per HPI Hematologic/Lymphatic: Reports as per HPI Allergic/Immunologic: Reports as per HPI Mental Status Exam Mental Status Exam Narrative: Pt is alert and oriented; behavior is cooperative, friendly and calm; dressed in casual attire; mood is described as good ; eye contact appropriate; Speech is normal rate, volume and not pressured; thought process is organized and goal directed; Thought content is on tx; denies SI/HI/VH/AH. Diagnostics Vital Signs (24Hr): Vital Signs - 24 hr 09/06/24 20:00 Temperature 98.4 F Pulse Rate 73 Blood Pressure 121/58 L Pulse Oximetry 98 Oxygen Delivery Method Room Air BMI result Body Mass Index 29.2 Labs 08/29/24 15:48 08/29/24 15:48 Medications Medications Current Medications Acetaminophen (Acetaminophen 325 Mg Tablet) 650 mg PO Q6H PRN PRN Reason: Headache/Pain Mild Scale (1-3) Al Hydroxide/Mg Hydroxide (Magnesium Hydrox/Alum Hydrox 30 Ml Oral.Susp) 30 ml PO Q6H PRN PRN Reason: Heartburn/Nausea Cephalexin HCl (Cephalexin 500 Mg Capsule) 500 mg PO BID [facility] Last Admin: 09/06/24 22:35 Dose: 500 mg Folic Acid (Folic Acid 1 Mg Tablet) 1 mg PO DAILY [facility] Last Admin: 09/06/24 09:00 Dose: 1 mg Hydroxyzine HCl (Hydroxyzine Hcl 25 Mg Tablet) 25 mg PO Q6H PRN PRN Reason: Anxiety Last Admin: 09/06/24 18:12 Dose: 25 mg Lamotrigine (Lamotrigine 25 Mg Tablet) 25 mg PO BEDTIME [facility] Last Admin: 09/06/24 22:36 Dose: 25 mg Magnesium Hydroxide (Milk Of Magnesia 30 Ml Oral.Susp) 30 ml PO DAILY PRN PRN Reason: Constipation Mirtazapine (Mirtazapine 7.5 Mg Tablet) 7.5 mg PO BEDTIME [facility] Last Admin: 09/06/24 22:35 Dose: 7.5 mg Multivitamins/Vitamin C (Multivitamin Tablet) 1 tab PO DAILY [facility] Last Admin: 09/06/24 09:00 Dose: 1 tab Nicotine (Nicotine 21 Mg Patch.Td24) 21 mg TRANSDERMA DAILY PRN PRN Reason: smoking cessation Last Admin: 09/05/24 14:40 Dose: 21 mg Nicotine Polacrilex (Nicotine Polacrilex 2 Mg Gum) 4 mg BUCCAL Q2H PRN PRN Reason: Nicotine Cravings Last Admin: 09/05/24 19:45 Dose: 4 mg Olanzapine (Olanzapine 5 Mg Tablet) 5 mg PO TID PRN PRN Reason: agitation Last Admin: 09/06/24 18:12 Dose: 5 mg Thiamine HCl (Thiamine Hcl 100 Mg Tablet) 100 mg PO DAILY [facility] Last Admin: 09/06/24 09:00 Dose: 100 mg Trazodone HCl (Trazodone Hcl 50 Mg Tablet) 50 mg PO BEDTIME MRX1 PRN PRN Reason: Insomnia Allergies Allergies Allergy/AdvReac Type Severity Reaction Status Date / Time No Known Allergies Allergy Verified 08/29/24 15:12 Assessment & Plan Assessment & Plan (1) Depression: Status: Acute Code(s): F32.A - Depression, unspecified (2) Alcohol use disorder: Status: Acute Code(s): F10.90 - Alcohol use, unspecified, uncomplicated (3) Cannabis use disorder: Status: Acute Code(s): F12.90 - Cannabis use, unspecified, uncomplicated (4) Cocaine use disorder: Status: Acute Code(s): F14.10 - Cocaine abuse, uncomplicated Plan Depression, PTSD-loss of sister, 2020, Alcohol, Cannabis, Cocaine use disorders. Plan: Admit, CV, 15 minute checks Collateral contacts Encourage full milieu Medical diagnostics as needed. Medications evaluation Discharge planning. 09/01/24: Lamictal 25 mg HS, started 08/31. Remeron 7.5 mg HS 09/02: Monitor response to recent medication changes. Continue current management and treatment plan. 09/03: Discharge planning Family meeting today-mother told pt she plans a Section 35 if he will not accept ongoing treatment. Pt is interested in pursuit of further care, this verbalized prior to family meeting. 09/04: Continue current management and treatment plan. 09/05: Retracted 3 day notice. Considering longer term program. Continue current medications and treatment plan. 09/06: Accepted with [facility]. Probable discharge this week. 09/07: Patient reports feeling good and ready to go to the rehab facility . Pt awaiting bed at treatment program. denies any issues at this time. denies SI/HI/VH/AH Patient educated on: diagnosis and medication risk/benefits Reason for continued inpatient stay Substantial Risk for: med/psych decompensation Time Spent With Patient Time: Total time managing care of this patient today _20___ minutes.
[2024-09-07] MEDS: Thiamine HCL 100 MG TABLET PO (09:50)
[2024-09-07] MEDS: cephALEXin 500 MG CAPSULE PO ×2 (09:50→23:16)
[2024-09-07] MEDS: Folic Acid 1 MG TABLET PO (09:50)
[2024-09-07] MEDS: Multivitamin TABLET 1 TAB PO (09:50)
[2024-09-07] MEDS: Nicotine Polacrilex 2 MG GUM 4 MG BUCCAL ×3 (11:42→23:20)
[2024-09-07] MEDS: hydrOXYzine HCL 25 MG TABLET PO ×2 (13:36→23:16)
[2024-09-07] MEDS: OLANZapine 5 MG TABLET PO ×2 (13:36→23:17)
[2024-09-07] MEDS: Nicotine 21 MG PATCH.TD24 TRANSDERMA (16:01)
[2024-09-07 20:00] VITALS: BP 124/68; PULSE 91; RESP 16; TEMP 37.1; O2SAT 97
[2024-09-07] MEDS: Mirtazapine 7.5 MG TABLET PO (23:16)
[2024-09-07] MEDS: lamoTRIgine 25 MG TABLET PO (23:16)
[2024-09-08 07:59] VITALS: BP 110/58; PULSE 57; RESP 16; TEMP 36.3; O2SAT 99
[2024-09-08] MEDS: Multivitamin TABLET 1 TAB PO (08:29)
[2024-09-08] MEDS: Folic Acid 1 MG TABLET PO (08:29)
[2024-09-08] MEDS: Thiamine HCL 100 MG TABLET PO (08:29)
[2024-09-08] MEDS: cephALEXin 500 MG CAPSULE PO (08:30)
--- NOTE | 2024-09-08 10:34 | P.DS_ITS ---
DS: Providers Provider Date of Service: 09/08/24 Date of admission: 08/30/24 14:01 Date of discharge: 09/08/24 Primary care physician: Sarah Physician Admitting clinician: Kristyn Morocho Attending physician on admission: Talat Ibarra Consults: 08/30/24 18:13 Addiction Medicine Routine Consulting Provider: Addiction Covering Reason for consultation: alcohol use Has provider been notified: Yes Attending physician on discharge: Talat Ibarra Discharging clinician: Kristyn Morocho DS: Diagnosis Discharge Diagnosis (1) Depression: Status: Acute (2) Alcohol use disorder: Status: Acute (3) Cannabis use disorder: Status: Acute (4) Cocaine use disorder: Status: Acute DS: Medications Discharge Medications Home Medications: Previous Rx's ?Medication ?Instructions ?Recorded cephalexin 500 mg capsule 500 mg PO BID #4 caps 09/08/24 folic acid 1 mg tablet 1 mg PO DAILY #30 tabs 09/08/24 lamotrigine 25 mg tablet 25 mg PO BEDTIME #30 tabs 09/08/24 mirtazapine 7.5 mg tablet 7.5 mg PO BEDTIME #30 tabs 09/08/24 multivitamin (Daily-Kendall tablet) 1 tab PO DAILY #30 tabs 09/08/24 nicotine (polacrilex) 2 mg gum 4 mg buccal Q2H PRN Nicotine 09/08/24 Cravings #110 ea nicotine 21 mg/24 hr daily 21 mg transdermal DAILY PRN 09/08/24 transdermal patch smoking cessation #30 ea thiamine mononitrate (vit B1) 100 100 mg PO DAILY #30 tabs 09/08/24 mg tablet Mental Status Exam Mental Status Exam Narrative: Pt is alert and oriented; behavior is cooperative, friendly and calm; dressed in casual attire; mood is described as good ; eye contact appropriate; Speech is normal rate, volume and not pressured; thought process is organized and goal directed; Thought content is on tx; denies SI/HI/VH/AH. Data Data Completed and Pending Completed studies during hospitalization [Text1]: 08/31/24 15:50 Urine clean catch Urine Culture - Final DS: Summary Hospital Course Hospital Course: Admission to adult psychiatry for exacerbation of depression with SI after being charged with OUI. Pt was traveling over 70 mph when arrested. Precipitants include the alcohol related of his sister in 2020 and ongoing grief surrounding her loss. Medications were evaluated and adjusted. Lamictal and Mirtazapine were initiated. Pt was able to utilize the milieu to work on coping skills. Family meeting was held with team where pt's mother told him that he needed to consider further rehab or she would pursue [address]. Pt will discharge to [facility] for ongoing addiction/psychiatric treatment. Status at Discharge Functional status at discharge: independent ambulation Overall status at discharge: patient is progressing back to baseline Time Spent with Patient Time attestation: Total time managing care of this patient today ____ minutes. Time spent: Less than 30 minutes Discharge Plan Discharge Anticipated Discharge Date/Time: 09/02/24 14:00 Patient Disposition: Xfer Inpatient Rehab Fac Discharge Diagnosis: Bipolar disorder Alcohol, Cannabis, Cocaine use disorder Referrals: [facility] [Other] - 09/08/24 2:30 pm (ADMITT 09/08/24 INPATIENT TREATMENT) Physician,None [Primary Care Provider] - (Please call the hospital if you would like your records forwarded to your PCP in future. ) Discharge Medications: New multivitamin [Daily-Kendall] Tablet 1 tab PO DAILY Qty: 30 0RF nicotine (polacrilex) 2 mg Gum 4 mg buccal Q2H PRN (Reason: Nicotine Cravings) Qty: 110 0RF lamotrigine 25 mg Tablet 25 mg PO BEDTIME Qty: 30 0RF cephalexin 500 mg Capsule 500 mg PO BID Qty: 4 0RF nicotine 21 mg/24 hr Patch 24 Hour 21 mg transdermal DAILY PRN (Reason: smoking cessation) Qty: 30 0RF folic acid 1 mg Tablet 1 mg PO DAILY Qty: 30 0RF mirtazapine 7.5 mg Tablet 7.5 mg PO BEDTIME Qty: 30 0RF thiamine mononitrate (vit B1) 100 mg Tablet 100 mg PO DAILY Qty: 30 0RF Discharge Orders: Discharge Order (Routine); Ordered 09/08/24 Ordered By: Kristyn Morocho Diet: Advance to usual diet Activity on Discharge: As tolerated Stand Alone Forms: Patient Portal Discharge page, Community Support Print Language: Khmer Care Plan Goals: Sobriety Mood and Behavioral Stabilization Health Concerns: Sobriety Mood and Behavioral Stabilization Plan of Treatment: Take medications as directed Transfer to in pt rehab with [facility] Program Assessment: HPI Subjective Notes: Kennedy Warning and Conditional Voluntary Healthcare Proxy: No Guardianship: No Medical Problems Affecting Mental Status: No Narrative: 23 yo male to ER with family. Pt reported SI in response to OUI. States he was traveling in excess of 70 mph, intoxicated. Reports since his sister in 2020 drinking to cope with grief surrounding her via OD. Both were close, spent much time together and he has not recovered since this loss. Past Psychiatric History: IP: Denies OP: Denies Medical Evaluation Reviewed: Yes [facility] Medical History (Updated 08/31/24 @ 09:54 by Kristyn Morocho, [employer]) Cocaine use disorder Cannabis use disorder Alcohol use disorder Mandibular pain Family History: Substance abuse Social History: Born and raised in [place] by parents Eleven siblings No children currently Substance History: alcohol, cannabis, nicotine Toxicology: BAL 92, Postive THC, Cocaine Trauma History: Loss of sister to OD 2020 Patient was admitted to with diagnosis of Depression, PTSD-loss of sister, 2020, Alcohol, Cannabis, Cocaine use disorders. He was started on Lamotrigine and Remeron. He transfers to [facility] today to continue treatment , Discharge Date/Time: 09/08/24 13:05
[2024-09-08] MEDS: Nicotine Polacrilex 2 MG GUM 4 MG BUCCAL (10:36)
== END 2024-09-08 13:05 | DRG 753 ==
LOC: HO.ED 08-30 00:13 → HO.PM5 08-30 14:02
PROVIDERS: Nurse Practitioner Family; Admitting Provider Psychiatry & Neurology Psychiatry; Emergency Provider Internal Medicine; Visit Provider Clinical Nurse Specialist Psychiatric/Mental Health, Adult
DX: F31.9 Bipolar disorder, unspecified (principal); R45.851 Suicidal ideations; F10.90 Alcohol use, unspecified, uncomplicated; F17.210 Nicotine dependence, cigarettes, uncomplicated; Y90.4 Blood alcohol level of 80-99 mg/100 ml; F12.90 Cannabis use, unspecified, uncomplicated; F14.10 Cocaine abuse, uncomplicated; Z23 Encounter for immunization; Z71.6 Tobacco abuse counseling; Z79.899 Other long term (current) drug therapy
CPT/HCPCS: 36415; 80048; 80061; 80076; 80143; 80179; 80307; 81001; 83036; 84443; 85025; 86704; 86706; 86803; 87086; 87340; 90656; 93005; 99285; S9485

== ENCOUNTER → 2024-08-30 07:46 | Outpatient (BNV) | payer MEDICAID, SELFPAY | PROVIDERS: Emergency Provider Internal Medicine; Visit Provider Internal Medicine | DX: R00.1 Bradycardia, unspecified (principal) | CPT/HCPCS: 93010 ==

== ENCOUNTER → 2024-08-30 14:01 | Outpatient (BNV) | payer OTHER, SELFPAY | PROVIDERS: Admitting Provider Psychiatry & Neurology Psychiatry; Emergency Provider Internal Medicine; Visit Provider Clinical Nurse Specialist Psychiatric/Mental Health, Adult | DX: F32.2 Major depressive disorder, single episode, severe without psychotic features (principal); F14.10 Cocaine abuse, uncomplicated; F10.90 Alcohol use, unspecified, uncomplicated; F12.90 Cannabis use, unspecified, uncomplicated | CPT/HCPCS: 99231; 99232; 99499 ==